=== PATIENT | female | born 1990 | race African-American/Black ===

== ENCOUNTER 2016-11-26 12:02 | Emergency (ER) | payer BC, OTHER ==
[~2016-11-26] VITALS: Ht 157.5 cm; Wt 90.7 kg
[~2016-11-26 12:02] MED LIST: BACTRIM DS TAB1 EAC1 ORAL; BENADRYL25 MG ORAL; CEPHALEXIN500 MG ORAL; CYCLOBENZAPRINE10 MG ORAL; IBUPROFEN600 MG ORAL; IBUPROFEN800 MG ORAL; KEFLEX500 MG ORAL; NKM; VICODIN 5-5001 EACH PO; ZOFRAN ODT4 MG ORAL
[2016-11-26 12:47] VITALS: BP 119/69
[2016-11-26] MEDS ORDERED: CEPHALEXIN500 MG ORAL (13:00)
[2016-11-26 13:50] VITALS: BP 119/69
--- NOTE | 2016-11-26 15:43 | Emergency Room Report ---
History of Present Illness General Chief Complaint: Skin Rash/Abscess Source: Patient Present Illness [facility] The patient is a 25-year-old female presenting with right facial pain which began one week prior. The patient noticed a swelling around the lower jaw. No discharge. The pain is described as a 4/10 dull ache and is worse with touch. Pt denies N, V, F, chills, COX, cough, CP, SOB Allergies: Coded Allergies: No Known Allergies (Unverified , 02/28/13) Patient History Past Medical History: see triage record Pertinent Family History: none Last Menstrual Period: 11/03/16 Now: No Reviewed Nursing Documentation: PMH: Agreed, PSxH: Agreed Nursing Documentation-PMH Past Medical History: No Stated History Review of Systems All Other Systems: negative except mentioned in HPI Physical Exam Vital Signs Date Time Temp Pulse Resp B/P Pulse Ox O2 Delivery O2 Flow Rate FiO2 11/26/16 12:41 98.4 86 16 119/69 100 Room Air Sp02 EP Interpretation: reviewed, normal General Appearance: no apparent distress, alert, GCS 15, non-toxic Head: normocephalic, atraumatic Eyes: bilateral eye PERRL, bilateral eye normal inspection ENT: hearing grossly normal, normal pharynx, no angioedema, normal voice, TMs + canals normal, uvula midline, moist mucus membranes Neck: full range of motion, supple/symm/no masses Respiratory: chest non-tender, lungs clear, normal breath sounds, speaking full sentences Cardiovascular #1: regular rate, rhythm, no edema Cardiovascular #2: 2+ carotid (R), 2+ carotid (L), 2+ radial (R), 2+ radial (L) , 2+ dorsalis pedis (R), 2+ dorsalis pedis (L) Gastrointestinal: normal bowel sounds, non tender, soft, non-distended, no guarding, no rebound Rectal: deferred Genitourinary: normal inspection, no CVA tenderness Musculoskeletal: back normal, gait/station normal, normal range of motion, non- tender Neurologic: alert, oriented x3, responsive, motor strength/tone normal, sensory intact, speech normal Psychiatric: judgement/insight normal, memory normal, mood/affect normal, no suicidal/homicidal ideation Reflexes: 3+ bicep (R), 3+ bicep (L), 3+ tricep (R), 3+ tricep (L), 3+ knee (R) , 3+ knee (L) Skin: normal color, no rash, warm/dry, well hydrated, other - There is a 1cm in diameter indurated lesion of R cheek. TTP. Erythematous. No fluctuance. Lymphatic: no adenopathy Medical Decision Making PA Attestation Dr. Blackmon is my supervising physician. Patient management was discussed with my supervising physician Diagnostic Impression: Primary Impression: Facial abscess ER Course The patient is a 25-year-old female presenting with right facial pain which began one week prior. Ddx considered include but not limited to abscess, insect bite, contact dermatitis, eczema, cellulitis PE: vitals WNL. NAD. There is a 1cm in diameter indurated lesion of R cheek. TTP. Erythematous. No fluctuance. No lymphad. The patient will be discharged home with a prescription for Keflex and is given ER precautions. Patient will return for I and D if the abscess becomes larger or becomes fluctuant Last Vital Signs Date Time Temp Pulse Resp B/P Pulse Ox O2 Delivery O2 Flow Rate FiO2 11/26/16 13:50 98.4 64 16 119/69 100 Room Air Status: improved Disposition: HOME, SELF-CARE Condition: Improved Scripts Cephalexin* (KEFLEX*) 500 Mg Capsule 500 MG ORAL EVERY 12 HOURS, #14 CAP 0 Refills Prov: NHUNG MURDOCK 11/26/16 Referrals: NOT CHOSEN [facility]/MD,REFERRING (PCP) Departure Forms: Return to Work Return to Work Date: Nov 27, 2016 Patient Instructions: Abscess Additional Instructions: I discussed my findings with the patient. All questions and concerns have been answered. Treatment and medication compliance have been addressed. I advised the patient that they need to follow up with PMD in 3-5 days. Return to ED if symptoms worsen, new symptoms arise, or if needed for any reason. Patient verbalized understanding of discharge instructions. NHUNG MURDOCK Nov 26, 2016 15:43
== END 2016-11-26 13:51 | disposition home or self-care (01) ==
LOC: EMR 13:01
DX: L02.01 Cutaneous abscess of face (principal)
CPT/HCPCS: 99283

== ENCOUNTER 2017-11-09 19:35 | Emergency (ER) | payer BC, MEDICAID, OTHER ==
[~2017-11-09] VITALS: Ht 157.5 cm; Wt 86.2 kg
[2017-11-09] MEDS ORDERED: Acetaminophen 500mg (ES) tab ORAL ONE (20:15)
[2017-11-09 20:24] LABS: APPEARANCE,URINE SLIGHTLY CLOUDY; KETONES,URINE NEGATIVE (NEGATIVE); LEUKOCYTE ESTERASE ,URINE 1+ (NEGATIVE); NITRITE,URINE NEGATIVE (NEGATIVE); PH,URINE 8 (4.5-8.0); PROTEIN,URINE NEGATIVE (NEGATIVE); UROBILINOGEN,URINE 1 MG/DL (0.0-1.0)
[2017-11-09 20:32] LABS: AMORPHOUS SEDIMENT,UR MODERATE /LPF; BACTERIA,URINE MANY /HPF; RBC,URINE 0-2 /HPF (0 - 2); SQUAMOUS EPITHELIAL CELL,UR FEW /LPF (NONE/OCC); WBC,URINE 0-2 /HPF (0 - 2)
[2017-11-09 20:49] VITALS: BP 128/88
[2017-11-09] MEDS ORDERED: CYCLOBENZAPRINE10 MG ORAL (20:50)
[2017-11-09] MEDS ORDERED: IBUPROFEN600 MG ORAL (20:50)
[2017-11-09] MEDS ORDERED: KEFLEX500 MG ORAL (20:50)
--- NOTE | 2017-11-09 22:04 | Emergency Room Report ---
History of Present Illness General Chief Complaint: Back Pain-No Injury Source: Patient Present Illness HPI 26-year-old female presents ED playing of back pain. Started 2 days ago at rest. Left-sided, throbbing, 8/10, nonradiating. Worse with bending and twisting. Denies fevers or chills. Denies trauma. Denies dysuria or hematuria. No other aggravating relieving factors. Denies any other associated symptoms Allergies: Coded Allergies: No Known Allergies (Unverified , 02/28/13) Patient History Past Medical History: none Past Surgical History: none Pertinent Family History: none Social History: Denies: smoking, alcohol use, drug use Last Menstrual Period: Sep Now: No Immunizations: UTD Reviewed Nursing Documentation: PMH: Agreed, PSxH: Agreed Nursing Documentation-PMH Past Medical History: No Stated History Review of Systems All Other Systems: negative except mentioned in HPI Physical Exam Vital Signs Date Time Temp Pulse Resp B/P (MAP) Pulse Ox O2 Delivery O2 Flow Rate FiO2 11/09/17 19:47 98.2 11/09/17 20:49 128/88 Sp02 EP Interpretation: reviewed, normal General Appearance: no apparent distress, alert, GCS 15, non-toxic Head: normocephalic Eyes: bilateral eye normal inspection, bilateral eye PERRL ENT: normal ENT inspection Neck: normal inspection Respiratory: normal inspection Cardiovascular #1: normal inspection Gastrointestinal: normal bowel sounds, non tender, soft, non-distended, no guarding, no rebound Rectal: deferred Genitourinary: no vertebral tenderness, CVA tenderness (L) Musculoskeletal: tender - paraspinal lumbar tenderness Neurologic: alert, oriented x3, responsive, motor strength/tone normal, sensory intact, speech normal Psychiatric: normal inspection Skin: normal inspection Lymphatic: normal inspection Medical Decision Making Diagnostic Impression: Primary Impression: UTI (urinary tract infection) Qualified Codes: N10 - Acute pyelonephritis Additional Impression: Back pain Qualified Codes: M54.5 - Low back pain ER Course Hospital Course 26-year-old female presents ED complaining of left flank pain no trauma Differential diagnoses include: UTI, muscle strain, pyelonephritis Clinical course Patient placed on stretcher. After initial history and physical I ordered UA, urine . I ordered tylenol for pain UA + bacteria Diagnosis - UTI, back pain Stable and discharged home with prescriptions for Rx Motrin, Flexeril, Keflex. Instructed to followup with PMD. Return to ED if symptoms recur or worsen Labs Test 11/09/17 19:59 Urine Color Pale yellow Urine Appearance Slightly cloudy Urine pH 8 (4.5-8.0) Urine Specific [place] 1.015 (1.005-1.035) Urine Protein Negative (NEGATIVE) Urine Glucose (UA) Negative (NEGATIVE) Urine Ketones Negative (NEGATIVE) Urine Occult Blood Negative (NEGATIVE) Urine Nitrite Negative (NEGATIVE) Urine Bilirubin Negative (NEGATIVE) Urine Urobilinogen 1 MG/DL (0.0-1.0) Urine Leukocyte Esterase 1+ (NEGATIVE) Urine RBC 0-2 /HPF (0 - 2) Urine WBC 0-2 /HPF (0 - 2) Urine Squamous Epithelial Cells Few /LPF (NONE/OCC) Urine Amorphous Sediment Moderate /LPF (NONE) Urine Bacteria Many /HPF (NONE) Urine HCG, Qualitative Negative Last Vital Signs Date Time Temp Pulse Resp B/P (MAP) Pulse Ox O2 Delivery O2 Flow Rate FiO2 11/09/17 20:49 98.2 11/09/17 20:49 128/88 Status: improved Disposition: HOME, SELF-CARE Condition: Stable Scripts Cephalexin* (KEFLEX*) 500 Mg Capsule 500 MG ORAL Q6H, #28 CAP 0 Refills Prov: TEMO GALVIN M.D. 11/09/17 Cyclobenzaprine Hcl* (FLEXERIL*) 10 Mg Tablet 10 MG ORAL TID Y for Muscle Spasm, #20 TAB Prov: TEMO GALVIN M.D. 11/09/17 Ibuprofen* (MOTRIN*) 600 Mg Tablet 600 MG ORAL Q8H Y for For Pain, #30 TAB 0 Refills Prov: TEMO GALVIN M.D. 11/09/17 Referrals: NOT CHOSEN [facility]/,REFERRING (PCP) Departure Forms: Return to Work Return to Work Date: Nov 12, 2017 Work Restrictions: None Patient Instructions: Pyelonephritis, Adult, [id number] TEMO GALVIN M.D. Nov 09, 2017 22:04
== END 2017-11-09 21:13 | disposition home or self-care (01) ==
LOC: EMR 20:25
DX: N39.0 Urinary tract infection, site not specified (principal)
CPT/HCPCS: 81003; 81025; 87086; 99283

== ENCOUNTER 2017-11-20 17:21 | Emergency (ER) | payer MEDICAID ==
[~2017-11-20] VITALS: Ht 157.5 cm; Wt 86.2 kg
[2017-11-20 17:55] VITALS: BP 133/79
[2017-11-20] MEDS ORDERED: Ketorolac 60mg Inj IM ONE (18:30)
[2017-11-20] MEDS ORDERED: Methocarbamol 750mg tab ORAL ONE (18:45)
[2017-11-20 19:24] LABS: APPEARANCE,URINE CLEAR; BILIRUBIN, URINE NEGATIVE (NEGATIVE); COLOR,URINE PALE YELLOW; GLUCOSE, URINE (UA) NEGATIVE (NEGATIVE); KETONES,URINE NEGATIVE (NEGATIVE); LEUKOCYTE ESTERASE ,URINE NEGATIVE (NEGATIVE); NITRITE,URINE NEGATIVE (NEGATIVE); PH,URINE 6 (4.5-8.0); PROTEIN,URINE NEGATIVE (NEGATIVE); UROBILINOGEN,URINE NORMAL MG/DL (0.0-1.0)
--- NOTE | 2017-11-20 19:24 | Emergency Room Report ---
History of Present Illness General Chief Complaint: Pain Source: Patient Present Illness HPI 26-year-old female presents emergency department complaining of 8/10 in severity left flank pain and one in the. Patient states that she was previously evaluated and diagnosed with UTI she has been taking antibiotics for 3 days and states that she still continues to have low back/left-sided pain that is exacerbated upon movement. Patient states she has not had a chance to take muscle relaxer and she's been having go to work and she cannot take it during work hours. He denies fevers, chills, hematuria, dysuria, frequency or urgency. Patient denies abdominal pain, nausea or vomiting. Denies CP, Palpitations, LOC, AMS, dizziness, Changes in Vision, Sensation, paresthesias, or a sudden severe headache. Allergies: Coded Allergies: No Known Allergies (Unverified , 02/28/13) Patient History Past Medical History: see triage record Past Surgical History: none Pertinent Family History: none Now: No Reviewed Nursing Documentation: PMH: Agreed, PSxH: Agreed Nursing Documentation-PMH Past Medical History: No Stated History Review of Systems All Other Systems: negative except mentioned in HPI Physical Exam Vital Signs Date Time Temp Pulse Resp B/P (MAP) Pulse Ox O2 Delivery O2 Flow Rate FiO2 11/20/17 17:51 97.9 77 20 133/79 99 Room Air Sp02 EP Interpretation: reviewed, normal General Appearance: no apparent distress, alert, GCS 15, non-toxic Head: normocephalic, atraumatic Eyes: bilateral eye normal inspection, bilateral eye PERRL ENT: hearing grossly normal, normal voice Neck: full range of motion Respiratory: lungs clear, normal breath sounds, speaking full sentences Cardiovascular #1: regular rate, rhythm Gastrointestinal: normal bowel sounds, non tender, soft Genitourinary: normal inspection, no CVA tenderness Musculoskeletal: back normal, gait/station normal, normal range of motion, tender - Left lumbar and sacral paraspinal TTP, no midline ttp, no right sided ttp, FROM. Neurologic: alert, oriented x3, responsive, motor strength/tone normal, sensory intact, normal gait, speech normal, grossly normal Skin: normal color, no rash, warm/dry, well hydrated Medical Decision Making PA Attestation Dr. Syed is my supervising Physician whom patient management has been discussed with. Diagnostic Impression: Primary Impression: Back pain Qualified Codes: M54.5 - Low back pain Additional Impression: Muscle strain ER Course 26-year-old female presents emergency department complaining of 8/10 in severity left flank pain and one in the. Patient states that she was previously evaluated and diagnosed with UTI she has been taking antibiotics for 3 days and states that she still continues to have low back/left-sided pain that is exacerbated upon movement. Patient states she has not had a chance to take muscle relaxer and she's been having go to work and she cannot take it during work hours. He denies fevers, chills, hematuria, dysuria, frequency or urgency. Patient denies abdominal pain, nausea or vomiting. Denies CP, Palpitations, LOC, AMS, dizziness, Changes in Vision, Sensation, paresthesias, or a sudden severe headache. Ddx considered but are not limited to Diverticulitis, acute appy, diarrhea,UC, PUD, GE, pancreatitis, gallstone, kidney stone, pyelonephritis, UTI, obstruction. Vital signs: are WNL, pt. is afebrile H&PE are most consistent with muscle strain will re-check UA to evaluate for resolving UTI. ORDERS: - UA: WNL no evidence of infection at this time. ED INTERVENTIONS: -- Motrin 600mg -- Robaxin PO d/w pt. conservative treatment, and to follow up with a primary care provider. pt given a list of primary care clinics for follow up. d/w pt. to return to the ED with worsening or new symptoms. DISCHARGE: At this time pt. is stable for d/c to home. Will provide printed patient care instructions, and any necessary prescriptions. Care plan and follow up instructions have been discussed with the patient prior to discharge. Labs Test 11/20/17 18:20 Urine Color Pale yellow Urine Appearance Clear Urine pH 6 (4.5-8.0) Urine Specific [place] 1.020 (1.005-1.035) Urine Protein Negative (NEGATIVE) Urine Glucose (UA) Negative (NEGATIVE) Urine Ketones Negative (NEGATIVE) Urine Occult Blood Negative (NEGATIVE) Urine Nitrite Negative (NEGATIVE) Urine Bilirubin Negative (NEGATIVE) Urine Urobilinogen Normal MG/DL (0.0-1.0) Urine Leukocyte Esterase Negative (NEGATIVE) Last Vital Signs Date Time Temp Pulse Resp B/P (MAP) Pulse Ox O2 Delivery O2 Flow Rate FiO2 11/20/17 17:55 97.9 20 133/79 99 Room Air 11/20/17 17:51 77 Disposition: HOME, SELF-CARE Condition: Stable Scripts Lidocaine (Lidoderm) 1 Each Adh..patch 1 PATCH TOPIC DAILY, #25 PATCH 0 Refills Patch(es) may remain in place for up to 12 hours in any 24-hour period. Prov: Julianna Mcgee 11/20/17 Referrals: [facility],REFERRING (PCP) Departure Forms: Return to Work Return to Work Date: Nov 24, 2017 Work Restrictions: None Return to Full Activity: Nov 24, 2017 Patient Instructions: Muscle Strain, [id number] Additional Instructions: Take previously prescribed medications as directed. Follow up with a Primary Care Provider in 3-5 days, even if your symptoms have resolved. --Please review list of primary care clinics, if you do not already have a primary care provider Return sooner to ED if new symptoms occur, or current symptoms become worse. - Please note that this Emergency Department Report was dictated using [employer]baseball pitcher technology software, occasionally this can lead to erroneous entry secondary to interpretation by the dictation equipment. Julianna Mcgee Nov 20, 2017 19:24
[2017-11-20] MEDS ORDERED: LIDODERM700 M1 TOPIC (19:39)
[2017-11-20 19:46] VITALS: BP 130/78
== END 2017-11-20 19:46 | disposition home or self-care (01) ==
LOC: EMR 19:05
DX: R10.9 Unspecified abdominal pain (principal); S39.012A Strain of muscle, fascia and tendon of lower back, initial encounter; X58.XXXA Exposure to other specified factors, initial encounter; Y92.89 Other specified places as the place of occurrence of the external cause
CPT/HCPCS: 81003; 96372; 99284